=== PATIENT | female | born 1960 | race Caucasian/White ===

== ENCOUNTER → 2017-08-18 | Outpatient (REF) ==
[2017-08-18 16:53] LABS: ARTERIAL BLD GAS O2 SATURATION 95.1 % (92-100); ARTERIAL BLD GAS TCO2 CT 28.3; ARTERIAL BLOOD GAS BASE EXCESS -2.4 (-2-2); ARTERIAL BLOOD GAS HCO3 26.3 meq/L (22-26); ARTERIAL BLOOD GAS PHT 7.23 C (7.35-7.45); ARTERIAL BLOOD GAS pH 7.23 (7.35-7.45); OXYHEMOGLOBIN 94.4 %
[2017-08-18 16:55] LABS: ALLEN TEST NO; ATS? NO
== END ==
LOC: COL.PUL 16:44
PROVIDERS: Orthopaedic Surgery
DX: Z01.89 Encounter for other specified special examinations (principal)

== ENCOUNTER → 2017-08-18 | Outpatient (CLI) | payer OTHER | LOC: COL.RAD 17:15 | DX: J98.11 Atelectasis (principal); K21.9 Gastro-esophageal reflux disease without esophagitis; K76.0 Fatty (change of) liver, not elsewhere classified; R07.9 Chest pain, unspecified | CPT/HCPCS: J7050; Q9967 ==

== ENCOUNTER → 2017-08-19 | Outpatient (REF) ==
[2017-08-19 08:15] LABS: ARTERIAL BLD GAS O2 SATURATION 87.2 % (92-100); ARTERIAL BLD GAS TCO2 CT 21.9; ARTERIAL BLOOD GAS HCO3 20.6 meq/L (22-26); ARTERIAL BLOOD GAS PHT 7.33 C (7.35-7.45); ARTERIAL BLOOD GAS PO2 51.9 mmHg (80-100); ARTERIAL BLOOD GAS PO2T 51.9 (80-100); ARTERIAL BLOOD GAS pH 7.33 (7.35-7.45); OXYHEMOGLOBIN 86.5 %
== END ==
LOC: COL.PUL 08:08
PROVIDERS: Internal Medicine
DX: Z01.89 Encounter for other specified special examinations (principal)